=== PATIENT | male | born 1995 | race Caucasian/White ===

== ENCOUNTER 2022-01-17 10:41 | Emergency (ER) | payer BC, OTHER ==
[2022-01-17 10:47] VITALS: BP 158/92; PULSE 85; TEMP 98; BMI 29.0
== END 2022-01-17 11:22 | disposition home or self-care (01) ==
LOC: FER 10:41
DX: R11.0 Nausea (principal)
CPT/HCPCS: 99281-25

== ENCOUNTER 2022-06-15 00:49 | Emergency (ER) | payer OTHER ==
[2022-06-15 00:54] VITALS: BP 143/87; PULSE 83; RESP 17; TEMP 98; BMI 28.1
== END 2022-06-15 01:01 | disposition home or self-care (01) ==
LOC: FER 00:49
DX: M79.89 Other specified soft tissue disorders (principal)
CPT/HCPCS: 99282-25

== ENCOUNTER 2022-09-18 20:40 | Emergency (ER) | payer OTHER ==
[2022-09-18 21:29] VITALS: BP 140/84; PULSE 65; RESP 16; TEMP 98.2; BMI 28.1
== END 2022-09-18 21:45 | disposition home or self-care (01) ==
LOC: FER 20:40
DX: R19.5 Other fecal abnormalities (principal)
CPT/HCPCS: 99282-25

== ENCOUNTER 2023-10-23 12:27 | Emergency (ER) | payer OTHER ==
[2023-10-23 12:41] VITALS: BP 134/82; PULSE 70; RESP 18; TEMP 98.4; BMI 28.5
[2023-10-23] MEDS ORDERED: IBUPROFEN 600 MG TABLET (FP) PO ONE ×2 (12:50→12:58)
== END 2023-10-23 13:20 | disposition home or self-care (01) ==
LOC: FER 12:27
DX: R07.9 Chest pain, unspecified (principal); S29.011A Strain of muscle and tendon of front wall of thorax, initial encounter; X50.0XXA Overexertion from strenuous movement or load, initial encounter
CPT/HCPCS: 93005; 99283-25

== ENCOUNTER 2023-12-01 09:09 | Emergency (ER) | payer OTHER ==
[2023-12-01 09:29] VITALS: BP 158/94; PULSE 88; RESP 16; TEMP 98.4; BMI 28.1
[2023-12-01 09:37] LABS: HEMATOCRIT 47.2 % (35.4-49); MCH 28.6 pg (25.7-33.7); MCHC 33.9 g/dl (32.0-35.9); MEAN CELL VOLUME 84.3 fl (80-96); MEAN PLT VOLUME 8.7 fl (7.5-11.1); PLATELET COUNT 250.1 10^3/uL (134-434); RDW 13.5 % (11.9-15.9); WHITE BLOOD COUNT 5.6 10^3/uL (4.0-10.8)
[2023-12-01 09:51] LABS: INR 1.04 (0.83-1.09); PROTHROMBIN TIME (PATIENT) 12.1 SEC (9.7-13.0)
[2023-12-01 09:54] LABS: ACTIVATED PTT 33.8 SECONDS (25.2-36.5)
[2023-12-01 10:20] LABS: ALBUMIN 4.7 g/dl (3.4-5.0); BILIRUBIN,TOTAL 0.5 mg/dl (0.2-1); CALCIUM 9.9 mg/dl (8.5-10.1); CREATININE 1.2 mg/dl (0.6-1.3); POTASSIUM 3.8 mmol/L (3.5-5.1); TOT PROT 6.8 g/dl (6.4-8.2)
[2023-12-01 10:32] LABS: PLATELET ESTIMATE ADEQUATE
== END 2023-12-01 11:53 | disposition home or self-care (01) ==
LOC: FER 09:09
DX: R07.9 Chest pain, unspecified (principal); J40 Bronchitis, not specified as acute or chronic; R05.9 Cough, unspecified; R04.2 Hemoptysis; Z20.822 Contact with and (suspected) exposure to COVID-19
CPT/HCPCS: 0241U-QW; 36415; 71046-TC-FY; 80053; 84484; 85025; 85379; 85610; 85730; 93005; 99285-25